=== PATIENT | male | born 1950 | race Caucasian/White ===

== ENCOUNTER 2020-09-04 06:03 | Day surgery (SDC) | payer MEDICARE, OTHER ==
[2020-09-03 11:02] VITALS: BMI 27.9
[2020-09-04] MEDS ORDERED: Midazolam HCl 2 mg/2 ml Vial ONE (06:26)
[2020-09-04] MEDS ORDERED: Fentanyl 100 MCG/2 ML VIAL ONE (06:26)
[2020-09-04] MEDS ORDERED: EPINEPHrine 0.3 MG in Ophthalmic Irrigation Solution 500 ML IRR SCH (06:30)
[2020-09-04] MEDS ORDERED: Phenylephrine 2.5% Ophth Soln 5 ML BOT ONE (06:47)
[2020-09-04] MEDS ORDERED: Cyclopentolate 1% Ophth Drops 15 ML BOT ONE (06:47)
[2020-09-04] MEDS ORDERED: Maxitrol 0.1% Opth Oint 3.5 GM TUBE ONE (09:05)
[2020-09-04] MEDS ORDERED: Lidocaine 4% PF 5 ML AMP ONE (09:05)
[2020-09-04] MEDS ORDERED: PROPOFOL 200 MG/20 ML VIAL ONE (09:05)
[2020-09-04] MEDS ORDERED: CEFAZOLIN 1 GM VIAL ONE (09:05)
[2020-09-04] MEDS ORDERED: Bupivacaine PF 0.75% SDV 10 ML ONE (09:05)
[2020-09-04] MEDS ORDERED: Lidocaine 1% PF 5 ML VIAL ONE (09:05)
[2020-09-04] MEDS ORDERED: Triamcinolone 40 MG/ML VIAL ONE (09:05)
== END 2020-09-04 10:23 | disposition home or self-care (01) ==
LOC: SDC 06:03
PROVIDERS: ATTEND Ophthalmology Retina Specialist
PROC: 08T53ZZ Resection of Left Vitreous, Percutaneous Approach (ICD-10-PCS; principal; 2020-09-04)
PROC: 08NF3ZZ Release Left Retina, Percutaneous Approach (ICD-10-PCS; 2020-09-04)
DX: H43.822 Vitreomacular adhesion, left eye (principal); I10 Essential (primary) hypertension; E78.5 Hyperlipidemia, unspecified; M06.9 Rheumatoid arthritis, unspecified; Z87.891 Personal history of nicotine dependence; Z79.82 Long term (current) use of aspirin; Z79.899 Other long term (current) drug therapy
CPT/HCPCS: J0171; J0690; J2250; J2704; J3010; J3301; J3490